=== PATIENT | female | born 1970 | race Caucasian/White ===

== ENCOUNTER 2022-11-09 07:39 | Outpatient (AMB) | payer OTHER, SELFPAY ==
--- NOTE | 2022-11-09 07:40 | MHC.PC.OV ---
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 She complains c/o feeling tired, having low energy and inner weakness, difficulty performing her job, crying a lot, spending a day in the bed on the the day off , on and off for 2 years. Patient complains of chronic headaches and body aches and stiffness. Pt had extensive workup including blood work and CT of abd/chest. Patient tried antidepressant but developed suicidal ideation. She follows up with a counselor occasionally but no regular basis. Patient denies change in appetite or insomnia. Her mother had lung transplant surgery in July for pulmonary fibrosis is slowly recovering. [facility] Family History (Updated 11/09/22 @ 08:05 by Nichole Hopson MD) Father Substance use disorder Mental health disorder Mother Pulmonary fibrosis Social History (Updated 11/09/22 @ 08:07 by Nichole Hopson MD) Household Members Other:: 5 years, no children, works as [employer], Housing: House Patient Tobacco Use Status: Never used Tobacco e-Cigarette/Vaping Use: Never Used Second Hand Smoke Exposure: No service: No Current occupational status: employed Current occupation: [employer] Current occupational exposures/hazards: Yes Cognitive needs: No Hearing needs: No Vision needs: No Review of Systems Const All systems reviewed & are unremarkable except as noted in HPI and below Reports no additional complaints Eyes Reports no additional complaints ENT Reports no additional complaints Card Reports no additional complaints Resp Reports no additional complaints GI Reports no additional complaints Reports no additional complaints Musc Reports no additional complaints Physical exam (Primary Care) Vital Signs: Last Vital Signs Pulse 63 11/09/22 07:43 BP 102/70 11/09/22 07:43 Pulse Ox 100 11/09/22 07:43 Oxygen Delivery Method Room Air 11/09/22 07:43 BMI result Body Mass Index 27.1 Tobacco/Smoking Status: Tobacco use Status Tobacco use date assessed 11/09/22 11/09/22 07:50 Patient Tobacco Use Status Never used Tobacco 11/09/22 08:07 e-Cigarette/Vaping Use Never Used 11/09/22 08:07 Const General: no acute distress HENMT Head: Yes normal to inspection Ears: hearing grossly normal bilaterally General nose exam: Normal external nose present Face and sinus: Yes normal facial exam Mouth: Normal oral and palatal mucosa present Throat: Yes posterior oropharynx normal Eyes General: appearance normal, both eyes and all related structures Neck Neck: Yes no lymphadenopathy and Yes supple Resp Effort & Inspection: normal respiratory effort Auscultation: clear to auscultation bilaterally Cardio Rhythm: regular rhythm Heart sounds: S1 normal heart sound present and S2 normal heart sound present GI Inspection: Yes normal to inspection Palpation (GI): Soft to palpation Percussion: Yes normal to percussion Auscultation: normal bowel sounds Assessment and Plan Assessment & Plan (1) Anxiety and depression: Code(s): F41.9 - Anxiety disorder, unspecified; F32.A - Depression, unspecified Plan: Patient was advise to follow-up with a counselor and a psychiatrist on a regular basis. She will obtain her medical records and was advised to have a colonoscopy scheduled. Coding Level of Care Code New Pt Level 4 (87968) Diagnoses Anxiety and depression F41.9; F32.A
[2022-11-09 07:43] VITALS: BP 102/70; PULSE 63; O2SAT 100; BMI 27.1
== END 2022-11-09 10:42 | disposition home or self-care (01) ==
PROVIDERS: Visit Provider Internal Medicine
DX: F41.9 Anxiety disorder, unspecified (principal); F32.A Depression, unspecified
CPT/HCPCS: 99204